=== PATIENT | male | born 1965 | race Caucasian/White ===

== ENCOUNTER 2022-01-30 13:51 | Emergency (ER) | payer OTHER, SELFPAY ==
[2022-01-30] MEDS ORDERED: Ketorolac Tromethamine 30 MG/ML VIAL ONE (14:39)
[2022-01-30] MEDS ORDERED: Ondansetron PF 4 MG/2 ML Vial ONE (18:05)
[2022-01-30] MEDS ORDERED: Morphine 4 MG/ML VIAL ONE (18:05)
[2022-01-30] MEDS ORDERED: Diazepam 10 MG/2 ML SYRINGE ONE (18:22)
== END 2022-01-30 20:00 | disposition home or self-care (01) ==
LOC: CSHERS 13:51
DX: S52.571A Other intraarticular fracture of lower end of right radius, initial encounter for closed fracture (principal); E11.9 Type 2 diabetes mellitus without complications; E78.5 Hyperlipidemia, unspecified; I10 Essential (primary) hypertension; V89.2XXA Person injured in unspecified motor-vehicle accident, traffic, initial encounter
CPT/HCPCS: 29125; 96374; 96375; J1885; J2270; J2405; J3360